=== PATIENT | female | born 1980 | race Caucasian/White ===

== ENCOUNTER 2020-07-13 07:44 | Day surgery (SDC) | payer MEDICAID ==
[2020-07-06 15:58] LABS: BASOPHILS # (AUTO) 0.1 X10'3 (0-0.2); BASOPHILS % (AUTO) 0.8 % (0-1); EOSINOPHILS # (AUTO) 0.3 X10'3 (0-0.9); EOSINOPHILS % (AUTO) 2.6 % (0-6); LYMPHOCYTES # (AUTO) 1.9 X10'3 (1.1-4.8); LYMPHOCYTES % (AUTO) 17.9 % (21-51); MEAN CORPUSCULAR HEMOGLOBIN 28.2 PG (27.0-31.0); MEAN CORPUSCULAR HGB CONC 33.1 g/dL (33.0-36.5); MEAN CORPUSCULAR VOLUME 85.2 FL (78-98); MEAN PLATELET VOLUME 9.4 FL (7.4-10.4); MONOCYTES # (AUTO) 0.8 X10'3 (0-0.9); MONOCYTES % (AUTO) 7.4 % (2-12); NEUTROPHILS # (AUTO) 7.6 X10'3 (1.8-7.7); NEUTROPHILS % (AUTO) 71.3 % (42-75); PRE OP HEMATOCRIT 42.8 % (35.0-45.0); PRE OP HEMOGLOBIN 14.2 g/dL (12.0-16.0); PRE OP PLATELET COUNT 235 X10'3 (140-440); RED BLOOD COUNT 5.03 X10'6 (4.20-5.60); RED CELL DISTRIBUTION WIDTH 14.2 % (11.5-14.5)
[2020-07-06 16:06] LABS: CLARITY,URINE CLEAR (Clear); COLOR,URINE YELLOW (Yellow); GLUCOSE, URINE NEGATIVE (Neg); KETONES,URINE NEGATIVE (Neg); LEUKOCYTE ESTERASE ,URINE NEGATIVE (Neg); NITRITES, URINE NEGATIVE (Neg); OCCULT BLOOD,URINE NEGATIVE (Neg); PH,URINE 5.5 (4.8-8.0); PROTEIN,URINE NEGATIVE (Neg); UROBILINOGEN,URINE 0.2 E.U/dL (0.2-1.0)
[2020-07-06 16:09] LABS: HCG SERUM QL NEGATIVE
[2020-07-06 16:09] LABS: UA COLLECTION TYPE CLN CATCH MIDSTREAM
[2020-07-06 16:17] LABS: ALBUMIN 3.6 G/DL (3.4-5.0); ALKALINE PHOSPHATASE 96 IU/L (46-116); BLOOD UREA NITROGEN 11 MG/DL (7-18); BUN/CREATININE RATIO 14.7 (6.6-38.0); CALCIUM 8.7 MG/DL (8.5-10.1); CHLORIDE 105 MMOL/L (99-107); CREATININE 0.75 MG/DL (0.40-0.90); PRE OP ALT 24 U/L (30-65); PRE OP ANION GAP 7 (8-16); PRE OP AST 15 U/L (10-37); PRE OP BILIRUB, TOTAL 0.3 MG/DL (0.0-1.0); PRE OP GLUCOSE 84 MG/DL (70-104); PRE OP POTASSIUM 3.6 MMOL/L (3.4-5.1); PRE OP SODIUM 139 MMOL/L (135-145); TOTAL CARBON DIOXIDE 26.8 MMOL/L (24-32); TOTAL PROTEIN 7.2 G/DL (6.4-8.2); eGFR 87 ML/MIN
[2020-07-13] VITALS (10 sets, daily range): BP systolic 12–132; BP diastolic 63–74
[~2020-07-13] VITALS: Ht 167.6 cm; Wt 137.4 kg
[~2020-07-13 07:44] MED LIST: CHOL400T57 PO; OMEP40CA13 PO; PHEN37.591 PO; TOPI25TA15 PO; VENL150C2 PO; ceFOXitin sod/dextrose 2g/50ml 50 ML IV ONE; famotidine 20mg tablet PO ONE; ringers solution, lacted 1,000 ML IV SCH
[2020-07-13] MEDS ORDERED: ondansetron/PF 4mg/2ml inj IV PRN (07:50)
[2020-07-13] MEDS ORDERED: proCHLORperazine 10 MG/2 ml inj IV PRN (07:50)
[2020-07-13] MEDS ORDERED: meperidine/PF 25mg/ml syringe IV PRN ×3 (07:50)
[2020-07-13] MEDS ORDERED: morphine 4 MG/ML inj SYRINge IV PRN (07:50)
[2020-07-13] MEDS ORDERED: morphine 2 MG/ML inj. syringe IV PRN (07:50)
[2020-07-13] MEDS ORDERED: ringers solution, lacted 1,000 ML IV SCH (07:50)
[2020-07-13] MEDS ORDERED: BUPIVAcaine/PF 2.5 mg/ml (0.25%) 30ml vial ONE ×2 (09:36→11:15)
[2020-07-13] MEDS ORDERED: dexamethasone sod phosphate 10mg/ml inj ONE (10:26)
[2020-07-13] MEDS ORDERED: sevoflurane 250ml liquid IH ONE (10:26)
[2020-07-13] MEDS ORDERED: ondansetron/PF 4mg/2ml inj ONE (10:26)
[2020-07-13] MEDS ORDERED: midazolam 2 mg/2 ml injection ONE (10:32)
[2020-07-13] MEDS ORDERED: fentaNYL/PF 50MCG/1 ML 2ML syringe ONE (10:32)
[2020-07-13] MEDS ORDERED: propofol inj 20 ML IV ONE (10:34)
[2020-07-13] MEDS ORDERED: LIDOcaine 2% (20mg/ml) 5ml vial ONE (10:34)
[2020-07-13] MEDS ORDERED: rocuronium 10mg/ml inj IV ONE (10:41)
[2020-07-13] MEDS ORDERED: meperidine/PF 25mg/ml syringe ONE (11:02)
[2020-07-13] MEDS ORDERED: neostigmine methylsulfate 1 MG/ML 10ml vial ONE (11:22)
[2020-07-13] MEDS ORDERED: glycopyrrolate 0.2mg/ml inj ONE (11:22)
--- NOTE | 2020-07-13 11:35 | NUR ---
Received from OR via BED , accompanied by Anesthesiologist DR LOYA and report given by Anesthesiolgist. PATIENT WAKING UP, DENIES PAIN, V/S WNL, NEUROVASCULAR CHECKS INTACT, 20G PIV LUE, SCD ON,SCANT DRAINAGE TO PERIPAD, INC TO LEFT INNER ARM DERMABONDED CLOSED CDI
--- NOTE | 2020-07-13 12:55 | NUR ---
PATIENT A&OX4, DENIES PAIN, V/S WNL, NEUROVASCULAR CHECKS INTACT, 20G PIV LUE D/C, SCD OFF,SCANT DRAINAGE TO PERIPAD, INC TO LEFT INNER ARM DERMABONDED CLOSED CDI . I HAVE REVIEWED D/C INSTRUCTIONS WITH PATIENT AND FAMILY AND THEY HAVE VERBALIZED UNDERSTANDING. PATIENT D/C HOME WITH ALL BELONGINGS AND FAMILY GAVE TRANSPORT HOME.
== END 2020-07-13 12:55 | disposition home or self-care (01) ==
LOC: PAS 07:44
PROVIDERS: ATTEND Obstetrics & Gynecology Obstetrics
DX: Z30.2 Encounter for sterilization (principal); Z30.46 Encounter for surveillance of implantable subdermal contraceptive; E66.01 Morbid (severe) obesity due to excess calories; K21.9 Gastro-esophageal reflux disease without esophagitis; Z68.43 Body mass index [BMI] 50.0-59.9, adult; F41.9 Anxiety disorder, unspecified; F32.9 Major depressive disorder, single episode, unspecified; Z79.899 Other long term (current) drug therapy; Z20.828 Contact with and (suspected) exposure to other viral communicable diseases; Z90.49 Acquired absence of other specified parts of digestive tract; Z98.890 Other specified postprocedural states; Z72.89 Other problems related to lifestyle
CPT/HCPCS: 11982; 36415; 58671; 71046; 80053; 81003; 82948; 84703; 85025; 86885; 86900; 86901; 87635; 93005; A4264; J0694; J1100; J2001; J2175; J2250; J2405; J2704; J2710; J3010; J3490; A4618; A7000; J7120